=== PATIENT | female | born 1960 | race African-American/Black ===

== ENCOUNTER → 2020-06-18 | Outpatient (CLI) | payer BC | LOC: MAMMO 10:51 | PROVIDERS: ATTEND Family Medicine | DX: Z12.31 Encounter for screening mammogram for malignant neoplasm of breast (principal) | CPT/HCPCS: 77067 ==

== ENCOUNTER → 2020-07-06 | Outpatient (CLI) | payer BC ==
--- NOTE | 2020-07-06 09:33 | Diagnostic Imaging Report ---
EXAM: Right upper quadrant abdominal ultrasound INDICATION: Abnormal liver enzymes COMPARISON: None. TECHNIQUE: Transverse and longitudinal images of the right upper quadrant abdomen were obtained FINDINGS: Liver: Size: 14.6 cm in the right midclavicular line, normal Appearance: Increased echogenicity, smooth contour Mass: No focal masses Gallbladder: Status post cholecystectomy. Bile Ducts: Intrahepatic Ducts: No dilatation Extrahepatic Ducts: Common bile duct measures 8 mm Pancreas: Visualized portions of the pancreatic head, neck and proximal body are normal. Kidney: The right kidney measures 10.1 cm without evidence of hydronephrosis or stone. Vessels: Aorta: Visualized portions are normal Inferior Vena Cava: Visualized portions are normal Main Portal Vein: 1.0 cm, normal size with hepatopetal flow. Free Fluid: No ascites or pleural effusion IMPRESSION: Diffuse hepatic steatosis. Status post cholecystectomy. Signed by: Afsaneh Alejandra MD on 07/06/2020 9:30 AM
== END ==
LOC: US 08:45
PROVIDERS: ATTEND Family Medicine
DX: R74.8 Abnormal levels of other serum enzymes (principal)
CPT/HCPCS: 76705